=== PATIENT | female | born 1990 | race Caucasian/White ===

== ENCOUNTER 2024-02-18 16:27 | Emergency (ER) | payer OTHER ==
[~2024-02-18] VITALS: Ht 165.1 cm; Wt 160.8 kg
--- OUTSIDE RECORDS SUMMARY | 2024-02-18 16:27 | XMS ---
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 E.D. VISIT COUNT (12 MO.) 1 JAZMIN Browne TOTAL 1 NOTE: Visits indicate total known visits. ED/UCC VISIT TRACKING (12 MO.) 02/18/2024 16:27 JAZMIN Marie OR TYPE: Emergency COMPLAINT: - FOOT PAIN INPATIENT VISIT TRACKING (12 MO.) No inpatient visits to display in this time frame [email or web address]
[2024-02-18] MEDS ORDERED: GABAPENTIN300 MG PO (17:15)
[2024-02-18] MEDS ORDERED: LAMOTRIGINE100 MG PO (17:15)
[2024-02-18] MEDS ORDERED: ACETAMINOPHEN 500 MG TAB PO ONE (17:15)
[2024-02-18] MEDS ORDERED: PROPRANOLOL HCL20 MG PO (17:15)
[2024-02-18] MEDS ORDERED: HYDROXYZINE HCL50 MG PO (17:15)
[2024-02-18] MEDS ORDERED: PRAZOSIN HCL5 MG PO (17:15)
[2024-02-18] MEDS ORDERED: QUETIAPINE FUMA50 MG PO (17:15)
[2024-02-18] MEDS ORDERED: BUSPIRONE HCL15 MG PO (17:16)
[2024-02-18] MEDS ORDERED: NAPROXEN500 MG PO (17:16)
[2024-02-18] MEDS ORDERED: ARIPIPRAZOLE20 MG PO (17:16)
[2024-02-18] MEDS ORDERED: CYCLOBENZAPRINE10 MG PO (17:16)
[2024-02-18] MEDS ORDERED: DULOXETINE HCL60 MG PO (17:16)
[2024-02-18] MEDS ORDERED: VENTOLIN HFA18 GM INH (17:16)
[2024-02-18 17:50] VITALS: BP 143/74
== END 2024-02-18 17:50 | disposition home or self-care (01) ==
LOC: ED 16:27
DX: M79.672 Pain in left foot (principal); Z88.6 Allergy status to analgesic agent
CPT/HCPCS: 99283; A9270